=== PATIENT | male | born 1975 | race Caucasian/White ===

== ENCOUNTER 2017-08-26 13:32 | Emergency (ER) | payer OTHER ==
[~2017-08-26] VITALS: Ht 182.9 cm; Wt 102.2 kg
[2017-08-26 14:16] LABS: HEMATOCRIT 41.8 % (38.0-50.0); HEMOGLOBIN 14.8 G/DL (12.5-16.6); MCHC 35.4 G/DL (30.0-36.0); MCV 87.4 FL (86-99); PLATELET COUNT 219 K/uL (156-360); RBC DIS.WIDTH-CV 12.9 % (11.8-14.6); RBC DIS.WIDTH-SD 41.2 % (39-53); RED BLOOD COUNT 4.78 M/uL (4.00-5.50); WHITE BLOOD COUNT 4.9 K/uL (4.1-10.2)
[2017-08-26 14:25] LABS: CHLORIDE 105 mEq/L (99-109); SODIUM 140 mEq/L (136-147)
[2017-08-26 14:27] LABS: GLUCOSE 95 mg/dL (70-99)
[2017-08-26 14:31] LABS: GFR ESTIMATE (CALCULATED) > 59 mL/min/ (58.99-99999)
[2017-08-26 14:32] LABS: UREA NITROGEN (BUN) 18 mg/dL (9-23)
[2017-08-26 14:37] LABS: TROP-I INTERPRETATION NEGATIVE; TROPONIN-I 0.02 ng/mL (0.0-0.30)
[2017-08-26 15:25] VITALS: BP 126/71
== END 2017-08-26 15:26 | disposition home or self-care (01) ==
LOC: EME 13:32
PROVIDERS: Emergency Medicine
DX: R07.9 Chest pain, unspecified (principal); Z82.49 Family history of ischemic heart disease and other diseases of the circulatory system
CPT/HCPCS: 71046; 80048; 84484; 85027; 93005; 99281; 99284